=== PATIENT | male | born 1965 | race Caucasian/White ===

== ENCOUNTER 2018-09-05 16:28 | Emergency (ER) | payer OTHER ==
--- NOTE | 2018-09-05 16:34 | Emergency Department Report ---
Blank Doc - Documentation Documentation: This is a 53-year-odl male that presents with right upper abdominal pain. with radiation to right sided back. Denies any n/v. Denies any other symptoms. This initial assessment/diagnostic orders/clinical plan/treatment(s) is/are subject to change based on patient's health status, clinical progression and re- assessment by fellow clinical providers in the ED. Further treatment and workup at subsequent clinical providers discretion. Patient/guardians urged not to elope from the ED as their condition may be serious if not clinically assessed and managed. Initial orders include: 1- Patient sent to [facility] for further evaluation and treatment 2- labs 3- US abdominal
[2018-09-05 16:35] VITALS: BP 147/90
[2018-09-05 17:18] LABS: Basophils % (Auto) 0.2 % (0.0-1.8); Eosinophils # (Auto) 0.1 K/mm3 (0.0-0.4); Eosinophils % (Auto) 1.4 % (0.0-4.3); Hematocrit 47.2 % (35.5-45.6); Hemoglobin 15.8 gm/dl (11.8-15.2); Lymphocytes # (Auto) 3.4 K/mm3 (1.2-5.4); Lymphocytes % (Auto) 45.1 % (13.4-35.0); Mean Corpuscular HGB Conc 34 % (32-34); Mean Corpuscular Volume 83 fl (84-94); Monocytes # (Auto) 0.8 K/mm3 (0.0-0.8); Monocytes % (Auto) 10.7 % (0.0-7.3); Platelet Count 111 K/mm3 (140-440); Red Blood Count 5.67 M/mm3 (3.65-5.03); Red Cell Distribution Width 14.4 % (13.2-15.2)
[2018-09-05 17:35] LABS: Alanine Aminotransferase 29 units/L (7-56); Albumin 4.5 g/dL (3.9-5); BUN/Creatinine Ratio 13; Bilirubin,Direct 0.2 mg/dL (0-0.2); Blood Urea Nitrogen 9 mg/dL (9-20); Calcium 8.9 mg/dL (8.4-10.2); Hemolysis Index 6
[2018-09-05] MEDS ORDERED: NACL 0.9% 500 ML 500 ML ONE (18:11)
[2018-09-05 19:17] LABS: Bilirubin,Urine NEG (Negative); Blood,Urine NEG (Negative); Color,Urine Yellow (Yellow); Mucus,Urine 3+ /HPF; Protein,Urine <15 mg/dL mg/dL (Negative); Urobilinogen,Urine < 2.0 mg/dL (<2.0); WBC,Urine < 1.0 /HPF (0.0-6.0)
--- NOTE | 2018-09-05 19:46 | Emergency Department Report ---
ED Abdominal Pain HPI - General Chief Complaint: Abdominal Pain Stated Complaint: STOMACH PAIN Time Seen by Provider: 09/05/18 16:33 Source: patient Mode of arrival: Ambulatory Limitations: No Limitations - History of Present Illness Initial Comments: This is a 53-year-old male who presents to the emergency room with right upper quadrant pain radiating to bilateral flanks for 9 days. Past medical history of GERD. Patient states he was diagnosed with gallstones 2 years ago without pain. Patient states he ate chocolate ice cream last week and been in pain ever since. He saw his primary care physician Dr. Cooper today who instructed him to follow-up in the emergency room. Patient reports coughing, reflux, and right upper quadrant tenderness radiating into bilateral. Patient reports pain is worse when supine. She is currently taken ibuprofen and ranitidine were no improvement of symptoms. Patient reports it feels likes someone punched him in the stomach. Denies diarrhea, chest pain, shortness of breath, fever, urinary frequency, urgency, and dysuria. MD Complaint: abdominal pain Onset/Timin -: days(s) Location: RUQ Radiation: bilateral flank Migration to: no migration Severity: severe Severity scale (0 -10): 9 Quality: stabbing Consistency: constant Improves With: nothing Worsens With: eating Associated Symptoms: nausea, vomiting. denies: diarrhea, fever, hematemesis, hematochezia Treatments Prior to Arrival: NSAIDs - Related Data Previous Rx's Medication Instructions Recorded Last Taken Type Ciprofloxacin HCl [Ciprofloxacin 500 mg PO Q12HR #20 tab 03/27/16 Unknown Rx TAB] HYDROcodone/APAP 10-325 [[place] 1 each PO Q6HR PRN #20 tablet 03/27/16 Unknown Rx 10/325] Promethazine [Phenergan TAB] 25 mg PO Q6HR PRN #7 tab 03/27/16 Unknown Rx HYDROcodone/APAP 5-325 [[place] 1 each PO Q6HR PRN #7 tablet 09/06/18 Unknown Rx 5/325] Naproxen [Naprosyn] 500 mg PO TID PRN #20 tablet 09/06/18 Unknown Rx Ondansetron [Zofran Odt] 4 mg PO Q8HR PRN #15 tab.rapdis 09/06/18 Unknown Rx Allergies Allergy/AdvReac Type Severity Reaction Status Date / Time No Known Allergies Allergy Unverified 03/27/16 00:40 ED Review of Systems ROS: Stated complaint: STOMACH PAIN Other details as noted in HPI Constitutional: denies: chills, fever Respiratory: denies: cough, shortness of breath, wheezing Cardiovascular: denies: chest pain, palpitations Gastrointestinal: abdominal pain, nausea, vomiting. denies: diarrhea, constipation, hematemesis, melena, hematochezia Genitourinary: denies: urgency, dysuria Musculoskeletal: back pain. denies: joint swelling, arthralgia Skin: denies: rash, lesions Neurological: denies: headache, weakness, paresthesias Psychiatric: denies: anxiety, depression ED Past Medical Hx - Past Medical History Previous Medical History?: No - Surgical History Past Surgical History?: No - Social History Smoking Status: Never Smoker Substance Use Type: None - Medications Home Medications: Home Medications Medication Instructions Recorded Confirmed Last Taken Type Ciprofloxacin HCl [Ciprofloxacin 500 mg PO Q12HR #20 tab 03/27/16 Unknown Rx TAB] HYDROcodone/APAP 10-325 [[place] 1 each PO Q6HR PRN #20 tablet 03/27/16 Unknown Rx 10/325] Promethazine [Phenergan TAB] 25 mg PO Q6HR PRN #7 tab 03/27/16 Unknown Rx HYDROcodone/APAP 5-325 [[place] 1 each PO Q6HR PRN #7 tablet 09/06/18 Unknown Rx 5/325] Naproxen [Naprosyn] 500 mg PO TID PRN #20 tablet 09/06/18 Unknown Rx Ondansetron [Zofran Odt] 4 mg PO Q8HR PRN #15 tab.rapdis 09/06/18 Unknown Rx ED Physical Exam - General Limitations: No Limitations General appearance: alert, in no apparent distress - Respiratory Respiratory exam: Present: normal lung sounds bilaterally. Absent: respiratory distress - Cardiovascular Cardiovascular Exam: Present: regular rate, normal rhythm. Absent: systolic murmur, diastolic murmur, rubs, gallop - GI/Abdominal GI/Abdominal exam: Present: soft, tenderness (RUQ, LLQ, & LUQ), normal bowel sounds. Absent: distended, guarding, rebound, rigid, organomegaly, mass, bruit, pulsatile mass - Back Exam Back exam: Absent: CVA tenderness (R), CVA tenderness (L) - Neurological Exam Neurological exam: Present: alert, oriented X3, normal gait - Psychiatric Psychiatric exam: Present: normal affect, normal mood - Skin Skin exam: Present: warm, dry, intact, normal color. Absent: rash ED Course Vital Signs 09/05/18 16:34 Temperature 98.7 F Pulse Rate 85 Respiratory 16 Rate Blood Pressure 147/90 O2 Sat by Pulse 99 Oximetry ED Medical Decision Making - Lab Data Result diagrams: 09/05/18 16:41 09/05/18 16:41 Lab Results 09/05/18 09/05/18 09/05/18 Range/Units 16:41 16:41 18:45 WBC 7.5 (4.5-11.0) K/mm3 RBC 5.67 H (3.65-5.03) M/mm3 Hgb 15.8 H (11.8-15.2) gm/dl Hct 47.2 H (35.5-45.6) % MCV 83 L (84-94) fl MCH 28 (28-32) pg MCHC 34 (32-34) % RDW 14.4 (13.2-15.2) % Plt Count 111 L (140-440) K/mm3 Lymph % (Auto) 45.1 H (13.4-35.0) % Bailey % (Auto) 10.7 H (0.0-7.3) % Eos % (Auto) 1.4 (0.0-4.3) % Baso % (Auto) 0.2 (0.0-1.8) % Lymph # 3.4 (1.2-5.4) K/mm3 Bailey # 0.8 (0.0-0.8) K/mm3 Eos # 0.1 (0.0-0.4) K/mm3 Baso # 0.0 (0.0-0.1) K/mm3 Seg Neutrophils % 42.6 (40.0-70.0) % Seg Neutrophils # 3.2 (1.8-7.7) K/mm3 Sodium 140 (137-145) mmol/L Potassium 3.8 (3.6-5.0) mmol/L Chloride 101.3 (98-107) mmol/L Carbon Dioxide 26 (22-30) mmol/L Anion Gap 17 mmol/L BUN 9 (9-20) mg/dL Creatinine 0.7 L (0.8-1.5) mg/dL Estimated GFR > 60 ml/min BUN/Creatinine Ratio 13 % Glucose 74 L (75-100) mg/dL Calcium 8.9 (8.4-10.2) mg/dL Total Bilirubin 1.10 (0.1-1.2) mg/dL Direct Bilirubin 0.2 (0-0.2) mg/dL Indirect Bilirubin 0.9 mg/dL AST 20 (5-40) units/L ALT 29 (7-56) units/L Alkaline Phosphatase 57 (35-129) units/L Total Protein 7.7 (6.3-8.2) g/dL Albumin 4.5 (3.9-5) g/dL Albumin/Globulin Ratio 1.4 % Lipase 30 (13-60) units/L Urine Color Yellow (Yellow) Urine Turbidity Slightly-cloudy (Clear) Urine pH 5.0 (5.0-7.0) Ur Specific [place] 1.021 (1.003-1.030) Urine Protein <15 mg/dl (Negative) mg/dL Urine Glucose (UA) Neg (Negative) mg/dL Urine Ketones Neg (Negative) mg/dL Urine Blood Neg (Negative) Urine Nitrite Neg (Negative) Urine Bilirubin Neg (Negative) Urine Urobilinogen < 2.0 (<2.0) mg/dL Ur Leukocyte Esterase Neg (Negative) Urine WBC (Auto) < 1.0 (0.0-6.0) /HPF Urine RBC (Auto) 2.0 (0.0-6.0) /HPF U Epithel Cells (Auto) < 1.0 (0-13.0) /HPF Urine Mucus 3+ /HPF - Radiology Data Radiology results: report reviewed PROCEDURE: US GALLBLADDER TECHNIQUE: Real-time sonography in multiple planes of the gallbladder fossa and CBD with imaging of the adjacent liver, pancreas, and right kidney was performed with image documentation. CPT 39729 HISTORY: Abdominal pain COMPARISONS: None . FINDINGS: Liver: Normal size and echotexture with no evidence of solid mass lesion. There is a cyst measuring 3.6 cm in the right lobe of the liver. Gallbladder: There is cholelithiasis. There is adenomyomatosis. Gallbladder wall is thickened at 3.6 mm. There is no pericholecystic fluid.. Cholecystitis not excluded. Clinical correlation suggested. Intrahepatic bile ducts: Normal . Extrahepatic bile ducts: Normal. Pancreas: Normal as visualized with suboptimal depiction of the pancreatic tail. Right kidney: Normal echotexture. No focal renal mass, calculus, or hydronep hrosis. Other: No free fluid. IMPRESSION: There is a cyst measuring 3.6 cm in the right lobe of the liver. There is cholelithiasis. There is adenomyomatosis. Gallbladder wall is thickened at 3.6 mm. There is no pericholecystic fluid.. Cholecystitis not excluded. Clinical correlation suggested. . There is no biliary ductal dilatation. - Medical Decision Making Patient was examined by me. Vitals are normal and patient is in no acute distress. Obtained Labs and US of abdomen. All labs are unremarkable. IV site. Given normal saline, toradol, morphine, and levsin. US gallbladder dictated by radiologist. There is a cyst measuring 3.6 cm in the right lobe of the liver. There is cholelithiasis. There is adenomyomatosis. Gallbladder wall is thickened at 3.6 mm. There is no pericholecystic fluid.. Cholecystitis not excluded. Clinical correlation suggested. There is no biliary ductal dilatation. Patient informed of results. Consulted attending Dr. Meza and general surgeon Dr. Villafana. Patient labs are unremarkable and pain controlled while in ER can follow up outpatient. Referral to General Surgeon Dr. Villafana. Start norco, naproxen, and zofran. Plan discussed with patient who agrees with ER plan. Patient discharged home in stable condition. Follow up with PCP in 2- 3 days. Critical care attestation.: If time is entered above; I have spent that time in minutes in the direct care of this critically ill patient, excluding procedure time. ED Disposition Clinical Impression: Biliary colic Abdominal pain Qualifiers: Abdominal location: right upper quadrant Qualified Code(s): R10.11 - Right upp er quadrant pain Cholelithiasis Qualifiers: Cholelithiasis location: gallbladder Cholecystitis presence: without cholecysti tis Biliary obstruction: without biliary obstruction Qualified Code(s): K80.20 - Calculus of gallbladder without cholecystitis without obstruction Disposition: TO HOME OR SELFCARE Is pt being admited?: No Does the pt Need Aspirin: No Condition: Stable Instructions: Abdominal Pain (ED), Biliary Colic (ED), Cholelithiasis (ED) Additional Instructions: Follow up with general surgeon from the referrals bellow. Return to the ER if increasing pain, nausea and vomiting. Prescriptions: Naproxen [Naprosyn] 500 mg PO TID PRN #20 tablet PRN Reason: Pain , Severe (7-10) HYDROcodone/APAP 5-325 [[place] 5/325] 1 each PO Q6HR PRN #7 tablet PRN Reason: Pain Ondansetron [Zofran Odt] 4 mg PO Q8HR PRN #15 tab.rapdis PRN Reason: Nausea And Vomiting Referrals: HEMAL VILLAFANA MD [Staff Physician] - 3-5 Days [facility] JUNIE SAMUEL MD [Primary Care Provider] - 3-5 Days ROMEL MYLES MD [Referring] - 3-5 Days Forms: Work/School Release Form(ED) Time of Disposition: 00:20
[2018-09-05] MEDS ORDERED: MORPHINE IV ONE (21:02)
[2018-09-05] MEDS ORDERED: NACL 0.9% 1000 ML 1,000 ML IV ONE (21:05)
--- NOTE | 2018-09-05 21:50 | Ultrasound Report ---
PROCEDURE: US GALLBLADDER TECHNIQUE: Real-time sonography in multiple planes of the gallbladder fossa and CBD with imaging of the adjacent liver, pancreas, and right kidney was performed with image documentation. CPT 37120 HISTORY: Abdominal pain COMPARISONS: None . FINDINGS: Liver: Normal size and echotexture with no evidence of solid mass lesion. There is a cyst measuring 3.6 cm in the right lobe of the liver. Gallbladder: There is cholelithiasis. There is adenomyomatosis. Gallbladder wall is thickened at 3.6 mm. There is no pericholecystic fluid.. Cholecystitis not excluded. Clinical correlation suggested. Intrahepatic bile ducts: Normal . Extrahepatic bile ducts: Normal. Pancreas: Normal as visualized with suboptimal depiction of the pancreatic tail. Right kidney: Normal echotexture. No focal renal mass, calculus, or hydronephrosis. Other: No free fluid. IMPRESSION: There is a cyst measuring 3.6 cm in the right lobe of the liver. There is cholelithiasis. There is adenomyomatosis. Gallbladder wall is thickened at 3.6 mm. There is no pericholecystic fluid.. Cholecystitis not excluded. Clinical correlation suggested. . There is no biliary ductal dilatation. This document is electronically signed by Ankur Arredondo MD., Sep 05 2018 09:49:01 PM ET
[2018-09-05] MEDS ORDERED: TORADOL IV ONE (22:15)
[2018-09-05] MEDS ORDERED: LEVSIN SL SL ONE (22:16)
== END 2018-09-06 00:50 | disposition home or self-care (01) ==
LOC: ED 16:28
DX: K80.20 Calculus of gallbladder without cholecystitis without obstruction (principal); K80.50 Calculus of bile duct without cholangitis or cholecystitis without obstruction
CPT/HCPCS: 36415; 76700; 80048; 80076; 81001; 83690; 85025; 96361; 96374; 96375; 99284; J1885; J2270; J7030; J7040